=== PATIENT | male | born 1960 | race Caucasian/White ===

== ENCOUNTER 2020-08-02 14:52 | Outpatient (CLI) | payer BC ==
--- NOTE | 2020-08-02 16:26 | BD ---
Exam: DEXA Bone Density 08/02/20 HISTORY: Postmenopausal BMD (g/cm2) T-SCORE Left forearm: Ulnar distal: 0.476 -1.2 One third: 0.804 -0.2 Total: 0.634 -1.0 Left femoral neck: 0.741 -1.4 Total: 0.871 -1.1 Impression: Osteopenia of the left femoral neck. Normal bone mineral density of the left forearm. POS: DEWAYNE
== END 2020-08-02 14:53 | disposition home or self-care (01) ==
LOC: BICMAMMO 14:52
PROVIDERS: ATTEND Family Medicine
DX: Z13.820 Encounter for screening for osteoporosis (principal); M47.816 Spondylosis without myelopathy or radiculopathy, lumbar region; M85.852 Other specified disorders of bone density and structure, left thigh
CPT/HCPCS: 77080

== ENCOUNTER 2023-02-02 07:15 | Outpatient (CLI) | payer BC ==
[2023-02-02] MEDS ORDERED: Magnevist 469MG/ML 20 ML VIAL ONE (09:38)
== END 2023-02-02 07:16 | disposition home or self-care (01) ==
LOC: BICMRI 07:15
PROVIDERS: ATTEND Psychiatry & Neurology Neurology
DX: R51.9 Headache, unspecified (principal); G93.89 Other specified disorders of brain; R90.82 White matter disease, unspecified
CPT/HCPCS: 70210; 70553

== ENCOUNTER 2023-12-08 13:35 | Outpatient (CLI) | payer BC | END 2023-12-08 13:36 | disposition home or self-care (01) | LOC: BICMAMMO 13:35 | PROVIDERS: ATTEND Family Medicine | DX: M85.851 Other specified disorders of bone density and structure, right thigh (principal); M85.852 Other specified disorders of bone density and structure, left thigh | CPT/HCPCS: 77080 ==

== ENCOUNTER 2024-07-25 08:49 | Outpatient (CLI) | payer BC | END 2024-07-25 08:50 | disposition home or self-care (01) | LOC: BICRAD 08:49 | PROVIDERS: ATTEND Family Medicine | DX: S33.6XXA Sprain of sacroiliac joint, initial encounter (principal); M47.816 Spondylosis without myelopathy or radiculopathy, lumbar region; Z98.1 Arthrodesis status | CPT/HCPCS: 72100 ==